=== PATIENT | female | born 2005 | race Two or more races ===

== ENCOUNTER 2024-10-04 21:55 | Emergency (ER) | payer OTHER ==
[~2024-10-04] VITALS: Ht 157.5 cm; Wt 58.0 kg
--- NOTE | 2024-10-04 22:05 | ECG ---
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
[2024-10-04 23:16] LABS: Alanine Aminotransferase 15 U/L (7-40); Albumin 4.7 g/dL (3.2-4.8); Anion Gap 14 (5-15); BUN/Creatinine Ratio 15.8 (10.0-20.0); Bilirubin, Total 0.7 mg/dL (0.2-1.0); Blood Urea Nitrogen 12 mg/dL (9-23); Calcium 9.5 mg/dL (8.7-10.4); Creatine Kinase IFCC 66 U/L (34-145); Glucose 104 mg/dL (74-106); Magnesium 1.9 mg/dL (1.6-2.6); Sodium 143 mmol/L (136-145); Total Protein 7.3 g/dL (5.7-8.2)
[2024-10-04 23:21] LABS: Alkaline Phosphatase 46 U/L (46-116); Carbon Dioxide 18 mmol/L (20-31); Chloride 111 mmol/L (98-107); Potassium 3.0 mmol/L (3.5-5.1)
[2024-10-04 23:30] LABS: Hemoglobin 13.6 g/dL (12.2-16.2); Mean Corpuscular Volume 69.1 fL (80.0-100.0)
[2024-10-04 23:31] LABS: Hematocrit 41.6 % (36.0-46.0); Mean Corpuscular Hemoglobin 22.6 pg (28.0-32.0); Nucleated Red Blood Cells % 0.1 %
--- NOTE | 2024-10-04 23:48 | DVH ---
CHEST RADIOGRAPH Indication: cp Technique: Single frontal view of the chest was obtained COMPARISON: None FINDINGS: Lines and Tubes: None Lungs: Clear Pleura: No effusion. No pneumothorax. Cardiomediastinal contours: Unremarkable Bones: Unremarkable IMPRESSION: No abnormality.
--- NOTE | 2024-10-05 00:23 | ED.PDOC ---
History of Present Illness HPI Comments 19 y/o F is BIBA with significant other for c/c chest pain, palpitations, shortness of breath, and bilateral arm pain. Patient endorses on sudden and unprovoked onset of symptoms, while riding as passenger with her boyfriend on the way home from a beach trip, this evening. She reports previous history of palpitations, with unspecified arrhythmia diagnosis 2 years ago. States on being told then on her potassium levels being low for unknown reasons. She states on being out in the sun all day at the beach and having minimal fluid intake. Denies any nausea, vomiting, fever, chills, or further associated symptoms. Per EMS report, patient's vitals were unremarkable, with exception of a heart rate in the 150's, initially, which improved to the 130's range following calming technique use. 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 Cardiac: Chest pain, palpitations Lungs: Shortness of breath, no cough. GI: No nausea, no vomiting, no diarrhea, no constipation, no abdominal pain : No dysuria, frequency, or urgency. No hematuria. Musculoskeletal: Bilateral arm pain. No joint pain , no joint swelling, no extremity edema. Skin: No rash, no itching. Neuro: No headache, no dizziness, no weakness Vital Signs Vital Signs Date Time Temp Pulse Resp B/P (MAP) Pulse Ox O2 Delivery O2 Flow Rate FiO2 10/05/24 03:19 99 Room Air* 0 21 10/05/24 00:32 98.4 100 18 106/69 (81) 98.4 Physical Exam General: Awake, alert and oriented. No acute distress. Skin: Skin in warm, dry and intact. Appropriate color for ethnicity. HEENT: The head is normocephalic and atraumatic. Conjunctivae are clear without exudates or hemorrhage. Sclera is non-icteric. EOM are intact. No signs of nystagmus. Eyelids are normal in appearance without swelling or lesions. Oral mucosa is pink and moist Neck: The neck is supple with normal range of motion. No JVD. Cardiac: Heart rate and rhythm are normal. No murmurs, gallops, or rubs are auscultated. Respiratory: No signs of respiratory distress. Lung sounds are clear in all lobes bilaterally without rales, rhonchi, or wheezes. Abdominal: Abdomen is soft, non-tender without distention, guarding or rigidity. Bowel sounds are present and normoactive in all four quadrants. Extremities: Upper and lower extremities are atraumatic in appearance without deformity or edema. Neurological: The patient is awake, alert and oriented to person, place, and time with normal speech. Speech is clear. There is no facial asymmetry. Psychiatric: Appropriate mood and affect. Good judgement and insight. Past Medical History Past Medical History (Other): Arrhythmia unspecified Surgical History: Denies all surgeries PUMPER HELPER History: Denies all PUMPER HELPER Hx Family History Family History: Unknown Social History Smoker: Non-Smoker Alcohol: Denies ETOH Use Drugs: Denies Drug Use Lives In: Home Was a procedure done? Was a procedure done?: No EKG EKG : Pulse Rate (adult): 112 [place]: Normal Cardiac Rhythm: ST Hypertrophy: None ST: Normal Comments QTC 525 Differential Dx Considerations may include: Differential diagnoses considered include acute ischemic coronary syndrome, aortic dissection, cardiac tamponade, mediastinitis, pulmonary embolus, pneumothorax, tension pneumothorax, esophageal rupture, coronary artery vasospasm, myocarditis, pericarditis, pneumonia, pulmonary edema, esophageal tear, pancreatitis, aortic stenosis, dilated cardiomyopathy, hypertrophic cardiomyopathy, mitral valve prolapse, malignancy, pleuritis, pneumomediastinum, primary pulmonary hypertension, cholecystitis, esophageal spasm, esophagus, gastritis, GERD, peptic ulcer disease, costochondritis, fibromyalgia, rib fracture, herpes zoster, radicular syndromes, thoracic outlet syndrome, somatization. X-Ray, Labs, Meds, VS Vital Signs Date Time Temp Pulse Resp B/P (MAP) Pulse Ox O2 Delivery O2 Flow Rate FiO2 7/7/25 03:19 99 Room Air* 0 21 10/05/24 00:32 98.4 100 18 106/69 (81) 98 98.4 10/05/24 00:23 112 10/04/24 22:00 114 10/04/24 22:00 98.4 114 22 108/68 (81) 99 98.4 10/04/24 21:56 112 Lab Test 10/04/24 22:40 Range/Units White Blood Count 13.0 H 4.4-10.8 10^3/uL Red Blood Count 6.02 H 4.0-5.20 10^6/uL Hemoglobin 13.6 12.2-16.2 g/dL Hematocrit 41.6 36.0-46.0 % Mean Corpuscular Volume 69.1 L 80.0-100.0 fL Mean Corpuscular Hemoglobin 22.6 L 28.0-32.0 pg Mean Corpuscular Hemoglobin Concent 32.7 32.0-36.0 g/dL Red Cell Distribution Width 15.4 H 11.8-14.3 % Platelet Count 241 140-450 10^3/uL Mean Platelet Volume 8.6 6.9-10.8 fL Neutrophils (%) (Auto) 77.6 37.0-80.0 % Lymphocytes (%) (Auto) 14.4 10.0-50.0 % Monocytes (%) (Auto) 7.7 0.0-12.0 % Eosinophils (%) (Auto) 0.2 0.0-7.0 % Basophils (%) (Auto) 0.1 0.0-2.0 % Neutrophils # (Auto) 10.0 H 1.6-8.6 10 ^3/uL Lymphocytes # (Auto) 1.9 0.4-5.4 10 ^3/uL Monocytes # (Auto) 1.0 0-1.3 10 ^3/uL Eosinophils # (Auto) 0 0-0.8 10 ^3/uL Basophils # (Auto) 0 0-0.2 10 ^3/uL Nucleated Red Blood Cells 0.1 % Sodium Level 143 136-145 mmol/L Potassium Level 3.0 L 3.5-5.1 mmol/L Chloride Level 111 H 98-107 mmol/L Carbon Dioxide Level 18 L 20-31 mmol/L Anion Gap 14 5-15 Blood Urea Nitrogen 12 9-23 mg/dL Creatinine 0.76 0.550-1.02 mg/dL Glomerular Filtration Rate Calc 115 >90 mL/min BUN/Creatinine Ratio 15.8 10.0-20.0 Serum Glucose 104 74-106 mg/dL Calcium Level 9.5 8.7-10.4 mg/dL Magnesium Level 1.9 1.6-2.6 mg/dL Total Bilirubin 0.7 0.2-1.0 mg/dL Aspartate Amino Transferase (AST) 18 13-40 U/L Alanine Aminotransferase (ALT) 15 7-40 U/L Alkaline Phosphatase 46 46-116 U/L Creatine Kinase 66 34-145 U/L Troponin I High Sensitivity 3 L </=34 ng/L B-Type Natriuretic Peptide 11.42 0-100 pg/mL Total Protein 7.3 5.7-8.2 g/dL Albumin 4.7 3.2-4.8 g/dL Current Medications Medications (Trade) Dose Ordered Sig/Alanis Route Start Time Stop Time Status Last Admin Sodium Chloride 1,000 ml @ 1,000 mls/hr Q1H ONCE IV 10/04/24 22:15 10/04/24 23:14 DC 10/05/24 02:00 Potassium Bicarbonate (Klor-Con/Ef) 50 meq ONCE ONCE PO 10/04/24 23:30 10/04/24 23:37 DC 10/05/24 02:15 [place] [id number] Ph: [phone] DIAGNOSTIC IMAGING Diagnostic Imaging Report : [id number] Signed PATIENT: TATIANA CHRISTIE ACCT: [id number] UNIT: [id number] : 2005 LOC: ER ROOM / BED: / AGE / SEX: 19 / F ADM STATUS: REG ER SERVICE [id number] ORDERING PHYSICIAN: CLAYTON CERVANTES MD PROCEDURE(s): CXR1 - CHEST XRAY 1 VIEW REASON: cp ORDER NUMBER(s): [id number], ACCESSION NUMBER(s): [id number] CHEST RADIOGRAPH Indication: cp Technique: Single frontal view of the chest was obtained COMPARISON: None FINDINGS: Lines and Tubes: None Lungs: Clear Pleura: No effusion. No pneumothorax. Cardiomediastinal contours: Unremarkable Bones: Unremarkable IMPRESSION: No abnormality. ATED BY: LUKAS CONTE MD DICTATED DATE/TIME: 10/04/242345 SIGNED BY: LUKAS CONTE MD SIGNED DATE/TIME: 10/04/242345 CC: Time of 1ST Reevaluation: 22:30 Reevaluation 1ST: Unchanged Patient Education/Counseling: Treatment, Need For Follow Up Family Education/Counseling: Treatment, Need For Follow Up SEPSIS Sepsis Screen Date sepsis recognized/suspect: Oct 04, 2024 Time Sepsis recognized/suspect: 2199 Recent Procedure: No On Antibiotic Therapy: No Respiratory Rate >20: No Heart Rate >90: Yes Temp<36 C (96.8 F) or >38.3 C: No SBP <90 or MAP <65 mmHG: No New Acute Mental Status Change: No Is the patient on CPAP, BIPAP,: No Physician Orders Chest Xray 1 View (10/04/24 22:15) Test, Urine (10/04/24 22:15) Urinalysis (10/04/24 22:15) Vital Signs Date Time Temp Pulse Resp B/P (MAP) Pulse Ox O2 Delivery O2 Flow Rate FiO2 10/05/24 03:19 99 Room Air* 0 21 10/05/24 00:32 98.4 100 18 106/69 (81) 98 98.4 10/05/24 00:23 112 10/04/24 22:00 114 10/04/24 22:00 98.4 114 22 108/68 (81) 99 98.4 10/04/24 21:56 112 Laboratory Tests Test 10/04/24 22:40 White Blood Count 13.0 10^3/uL (4.4-10.8) H Medications Medications Dose Ordered Sig/Alanis Route Start Time Stop Time Status Last Admin Dose Admin Potassium Bicarbonate 50 meq ONCE ONCE PO 10/04/24 23:30 10/04/24 23:37 DC 10/05/24 02:15 Sodium Chloride 1,000 ml @ 1,000 mls/hr Q1H ONCE IV 10/04/24 22:15 10/04/24 23:14 DC 10/05/24 02:00 Departure 1 Departure Time of Disposition: 01:52 Impression: Primary Impression: Chest pain Additional Impression: Hypokalemia Disposition: HOME / SELF CARE / HOMELESS Condition: Stable Additional Instructions: ED DISCHARGE INSTRUCTIONS INSTRUCTIONS: PLEASE READ ALL INSTRUCTIONS PROVIDED IN THIS PACKET CAREFULLY. ALTHOUGH YOU HAVE BEEN DISCHARGED FROM THE EMERGENCY DEPARTMENT, THIS DOES NOT MEAN THAT YOU HAVE A "CLEAN BILL OF HEALTH". NO DEFINITIVE DIAGNOSIS FOR YOUR SYMPTOMS HAS BEEN MADE TODAY. IT IS POSSIBLE THAT YOU ARE IN THE PROCESS OF DEVELOPING A SERIOUS ILLNESS. THIS IS WHY YOU MUST RETURN TO THE ED WITHOUT FAIL IF ANY NEW OR WORSENING SYMPTOMS (ESPECIALLY IF YOUR SYMPTOMS INCLUDE CHEST PAIN, TROUBLE BREATHING, ABDOMINAL PAIN, FEVER, HEADACHE, CONFUSION, TROUBLE SEEING, OR TROUBLE WALKING) IT IS ALSO VERY IMPORTANT THAT YOU SEE A PRIMARY CARE DOCTOR WITHIN THE NEXT 1-3 DAYS TO FOLLOW UP. IF YOU ARE UNABLE TO GET AN APPOINTMENT, RETURN TO THE ED FOR RE-EVALUATION. CHEST PAIN EDUCATION THERE ARE MANY THINGS THAT CAN CAUSE CHEST PAIN. SOME ARE NOT SERIOUS AND WILL GET BETTER ON THEIR OWN IN A FEW DAYS. BUT SOME KINDS OF CHEST PAIN NEED MORE TESTING AND TREATMENT. YOUR DOCTOR MAY HAVE RECOMMENDED A FOLLOW-UP VISIT IN THE NEXT FEW DAYS. IF YOU ARE NOT GETTING BETTER, YOU MAY NEED MORE TESTS OR TREATMENT. EVEN THOUGH YOUR DOCTOR HAS RELEASED YOU, YOU STILL NEED TO WATCH FOR ANY PROBLEMS. THE DOCTOR CAREFULLY CHECKED YOU, BUT SOMETIMES PROBLEMS CAN DEVELOP LATER. IF YOU HAVE NEW SYMPTOMS OR IF YOUR SYMPTOMS DO NOT GET BETTER, GET MEDICAL CARE RIGHT AWAY. IF YOU HAVE WORSE OR DIFFERENT CHEST PAIN OR PRESSURE THAT LASTS MORE THAN 5 MINUTES OR YOU PASSED OUT (LOST CONSCIOUSNESS), CALL 911 OR SEEK OTHER EMERGENCY HELP RIGHT AWAY. A MEDICAL VISIT IS ONLY ONE STEP IN YOUR TREATMENT. EVEN IF YOU FEEL BETTER, YOU STILL NEED TO DO WHAT YOUR DOCTOR RECOMMENDS, SUCH GOING TO ALL SUGGESTED FOLLOW-UP APPOINTMENTS AND TAKING MEDICINES EXACTLY DIRECTED. THIS WILL HELP YOU RECOVER AND HELP PREVENT FUTURE PROBLEMS. HOW CAN YOU CARE FOR YOURSELF AT HOME? REST UNTIL YOU FEEL BETTER. TAKE YOUR MEDICINE EXACTLY PRESCRIBED. CALL YOUR DOCTOR IF YOU THINK YOU ARE HAVING A PROBLEM WITH YOUR MEDICINE. DO NOT DRIVE AFTER TAKING A PRESCRIPTION PAIN MEDICINE. WHEN SHOULD YOU CALL FOR HELP? CALL 911 IF: YOU PASSED OUT (LOST CONSCIOUSNESS). YOU HAVE SEVERE DIFFICULTY BREATHING. YOU HAVE SYMPTOMS OF A HEART ATTACK. THESE MAY INCLUDE: CHEST PAIN OR PRESSURE, OR A STRANGE FEELING IN YOUR CHEST. SWEATING. SHORTNESS OF BREATH. NAUSEA OR VOMITING. PAIN, PRESSURE, OR A STRANGE FEELING IN YOUR BACK, NECK, JAW, OR UPPER BELLY OR IN ONE OR BOTH SHOULDERS OR ARMS. LIGHTHEADEDNESS OR SUDDEN WEAKNESS. A FAST OR IRREGULAR HEARTBEAT. AFTER YOU CALL 911, THE ROOF BOLTING COAL MINER MAY TELL YOU TO CHEW 1 ADULT-STRENGTH OR 2 TO 4 LOW-DOSE ASPIRIN. WAIT FOR AN AMBULANCE. DO NOT TRY TO DRIVE YOURSELF. CALL YOUR DOCTOR NOW OR SEEK IMMEDIATE MEDICAL CARE IF: YOU HAVE ANY TROUBLE BREATHING. YOU HAVE NEW OR DIFFERENT CHEST PAIN. YOU ARE DIZZY OR LIGHTHEADED, OR YOU FEEL LIKE YOU MAY FAINT. WATCH CLOSELY FOR CHANGES IN YOUR HEALTH, AND BE SURE TO CONTACT YOUR DOCTOR IF YOU DO NOT GET BETTER EXPECTED. CURRENT OF: OCTOBER 30, 2023 AUTHOR: [employer] Voice STAFF? [employer] Potassium Chloride (POTASSIUM CHLORIDE CR) 10 Meq Tb 1 TAB PO DAILY for 10 Days, #10 TAB 5 Refills Prov: CLAYTON CERVANTES MD 10/05/24 Comments 19-YEAR-OLD FEMALE WITH CHEST PAIN. PATIENT IS WELL-APPEARING, NONTOXIC. PATIENT'S SYMPTOMS RESOLVED DURING THE ED OBSERVATION. VITAL SIGNS STABLE. POTASSIUM REPLACED IN THE ED INPATIENT DISCHARGE WITH SCRIPT FOR POTASSIUM. OTHER LAB AND IMAGING RESULTS REVIEWED AND ARE NOT URGENTLY ACTIONABLE. PATIENT IS FELT STABLE FOR DISCHARGE HOME. PATIENT ADVISED TO FOLLOW UP WITH PRIMARY CARE PROVIDER PROMPTLY AND RETURN TO THE EMERGENCY DEPARTMENT WITH ANY NEW, WORSENING OR CONCERNING SYMPTOMS. Extensive evaluation was performed in attempt to identify or rule out: (See differential diagnosis section) The following tests were ordered, and results were reviewed by me and discussed with patient: (See diagnostic results section) The following test were independently interpreted by me: EKG I reviewed and agreed with the following test results read by other providers: Chest x-ray I reviewed the following notes from the pt's past medical encounters: N/A Additional information was gathered from interviewing the following independent historians: EMS PERSONNEL Decision regarding hospitalization or escalation of hospital level of care: Risks and benefits of admission for further treatment of patient's condition was considered however due to patient's stable condition patient will be discharged to follow up closely or return to care for worsening of condition or inability to follow up. Critical Care Note Critical Care Time?: No Stability Stability form required: No Heart Score Heart Score: Heart Score Response (Comments) Value History Slightly Suspicious 0 EKG Normal 0 Age <45 0 Risk Factors No known risk factors 0 Troponin Normal limit 0 Total 0 I personally scribed for CLAYTON CERVANTES MD ([email or web address]) on 10/05/24 at 00:23. Electronically submitted by Reji Zambrano ([email or web address]). CLAYTON CERVANTES MD Oct 05, 2024 00:23
[2024-10-05 00:32] VITALS: BP 106/69; PULSE 100; RESP 18; TEMP 98.4
[2024-10-05] MEDS ORDERED: POTA-36 PO (01:53)
[2024-10-05] MEDS: SODIUM CHLORIDE 0.9% 1,000 ML IV ONE (02:00)
[2024-10-05] MEDS: POTASSIUM EFFERVESENT TAB 25 MEQ PO ONE (02:15)
[2024-10-05 03:19] VITALS: O2SAT 99
== END 2024-10-05 03:30 | disposition home or self-care (01) ==
LOC: EDBD 21:55 → ER 21:55
DX: E87.6 Hypokalemia (principal); R07.9 Chest pain, unspecified; R00.2 Palpitations; M79.602 Pain in left arm; M79.601 Pain in right arm; Z79.899 Other long term (current) drug therapy
CPT/HCPCS: 36415; 71045; 80053; 82550; 83735; 83880; 84484; 85025; 93005; 96360; 99285; J7030